=== PATIENT | male | born 1940 | race Caucasian/White ===

== ENCOUNTER 2019-02-27 07:27 | Outpatient (CLI) | payer MEDICARE, OTHER | END 2019-02-27 23:59 | disposition home or self-care (01) | LOC: CVU 07:27 | PROVIDERS: ATTEND Physician Assistant | DX: I70.213 Atherosclerosis of native arteries of extremities with intermittent claudication, bilateral legs (principal); I10 Essential (primary) hypertension; I25.10 Atherosclerotic heart disease of native coronary artery without angina pectoris; F17.210 Nicotine dependence, cigarettes, uncomplicated; I25.2 Old myocardial infarction; Z95.1 Presence of aortocoronary bypass graft | CPT/HCPCS: 93922; 93925 ==

== ENCOUNTER 2020-02-09 07:47 | Observation (INO) | payer MEDICARE ==
[~2020-02-09] VITALS: Ht 175.3 cm; Wt 79.4 kg
[2020-02-09] MEDS ORDERED: DIGO125T85 PO (08:55)
[2020-02-09] MEDS ORDERED: CARV6.252 PO (08:55)
[2020-02-09] MEDS ORDERED: FURO40TA6 PO (08:55)
[2020-02-09] MEDS ORDERED: ASPI81TA45 PO (08:55)
[2020-02-09] MEDS ORDERED: LOSA25TA25 PO (08:59)
[2020-02-09] MEDS ORDERED: POTA20TA14 PO (08:59)
[2020-02-09] MEDS ORDERED: SOTA160T PO (08:59)
[2020-02-09 09:05] VITALS: BP 108/69
[2020-02-09 09:09] LABS: BASOPHILS # (AUTO) 0.03 x10^3/uL (0-0.1); BASOPHILS % (AUTO) 0 % (0-1); EOSINOPHILS # (AUTO) 0.19 x10^3/uL (0-0.4); EOSINOPHILS % (AUTO) 2 % (1-7); LYMPHOCYTES # (AUTO) 1.27 x10^3/uL (1-3.4); LYMPHOCYTES % (AUTO) 11 % (22-44); MD NO; MEAN CORPUSCULAR HEMOGLOBIN 29.7 pg (27.5-34.5); MEAN CORPUSCULAR HGB CONC 33.2 g/dL (33.2-36.2); MEAN CORPUSCULAR VOLUME 89.5 fL (81-97); MONOCYTES # (AUTO) 0.72 x10^3/uL (0.2-0.8); MONOCYTES % (AUTO) 6 % (2-9); NEUTROPHILS # (AUTO) 9.01 x10^3/uL (1.8-6.8); NEUTROPHILS % (AUTO) 80 % (42-75); PLATELET COUNT 188 x10^3/uL (130-400); RED BLOOD COUNT 4.73 x10^6/uL (4.38-5.82); RED CELL DISTRIBUTION WIDTH 15.8 % (9.4-14.8)
[2020-02-09 09:16] LABS: ANION GAP 5 mmol/L (5-15); CALCIUM 8.7 mg/dL (8.5-10.1); CHLORIDE 103 mmol/L (98-107); CREATININE 1.07 mg/dL (0.7-1.3)
[2020-02-09] MEDS ORDERED: HYDROmorphone 1 MG/ML, 1ML INJ IVPush PRN (09:30)
[2020-02-09] MEDS ORDERED: OXYcodone 5 MG/5 ML ORAL.SOL UDC PO PRN (09:30)
[2020-02-09] MEDS ORDERED: hydrALAzine 20 MG/ML, 1ML IV PRN (09:30)
[2020-02-09] MEDS ORDERED: FENTANYL PF 100 MCG/2ML IV PRN (09:30)
[2020-02-09] MEDS ORDERED: ACETAMINOPHEN 325 MG TABLET PO PRN ×2 (09:30→12:30)
[2020-02-09] MEDS ORDERED: MEPERIDINE/PF 25MG/0.5ML IVPush PRN (09:30)
[2020-02-09] MEDS ORDERED: ONDANSETRON 2MG/ML, 2ML IVPush PRN (09:30)
[2020-02-09] MEDS ORDERED: EPHEDRINE 50 MG/ML, 1ML IVPush PRN (09:30)
[2020-02-09] MEDS ORDERED: PLEASE ENTER HEIGHT AND WEIGHT MC SCH (09:30)
[2020-02-09] MEDS ORDERED: LABETALOL 5MG/ML, 20ML IV PRN (09:30)
[2020-02-09] MEDS ORDERED: PROMETHAZINE 25 MG/ML, 1ML IVPush PRN (09:30)
[2020-02-09] MEDS ORDERED: FENTANYL PF 100 MCG/2ML ONE ×2 (09:46→11:14)
[2020-02-09] MEDS ORDERED: CEFAZOLIN PMX 1GM/50ML 50 ML IVPB ONE (10:00)
[2020-02-09] MEDS ORDERED: SODIUM CHLORIDE 0.9% 1,000 ML IV SCH (10:00)
[2020-02-09] MEDS ORDERED: LIDOCAINE 1%, 20ML ONE (10:35)
[2020-02-09] MEDS ORDERED: SUCCINYLCHOLINE 20 MG/ML, 10ML ONE (10:37)
[2020-02-09] MEDS ORDERED: PROPOFOL 10 MG/ML, 20ML ONE (10:37)
[2020-02-09] MEDS ORDERED: DEXAMETHASONE 4 MG/ML, 1ML ONE (10:37)
[2020-02-09] MEDS ORDERED: CEFAZOLIN 1,000 MG ONE (10:37)
[2020-02-09] MEDS ORDERED: ONDANSETRON 2MG/ML, 2ML ONE (10:37)
[2020-02-09] MEDS ORDERED: EPINEPHRINE 1 MG/ML, 1ML ONE (10:38)
[2020-02-09] MEDS ORDERED: HOLD MEDICATION MC PRN (12:30)
[2020-02-09 14:00] VITALS: BP 90/53
[2020-02-09] MEDS ORDERED: CARVEDILOL 3.125 MG TABLET PO SCH (16:00)
[2020-02-09 16:45] VITALS: BP 91/55
[2020-02-09] MEDS: CEFAZOLIN PMX 1GM/50ML 50 ML IVPB SCH (18:37)
[2020-02-09 19:51] VITALS: BP 95/53
[2020-02-09] MEDS: SOTALOL 80MG TABLET PO SCH (20:34)
[2020-02-09] MEDS: SODIUM CHLORIDE FLUSH 10ML SYR IVF SCH (20:36)
[2020-02-09] MEDS ORDERED: LOSARTAN 25MG TABLET PO SCH (21:00)
[2020-02-09] MEDS ORDERED: ASPIRIN 81 MG TABLET EC PO SCH (21:00)
[2020-02-09 21:24] VITALS: BP 122/70
[2020-02-09] MEDS ORDERED: LOSARTAN 25MG TABLET ONE (21:40)
[2020-02-09] MEDS ORDERED: CARVEDILOL 3.125 MG TABLET ONE (21:40)
[2020-02-09] MEDS: CARVEDILOL 3.125 MG TABLET PO SCH (21:43)
[2020-02-10] MEDS: CEFAZOLIN PMX 1GM/50ML 50 ML IVPB SCH (01:35)
[2020-02-10 01:38] VITALS: BP 95/59
[2020-02-10 07:58] VITALS: BP 121/75
[2020-02-10] MEDS: SOTALOL 80MG TABLET PO SCH (08:22)
[2020-02-10] MEDS: CARVEDILOL 3.125 MG TABLET PO SCH (08:22)
[2020-02-10] MEDS: SODIUM CHLORIDE FLUSH 10ML SYR IVF SCH (08:23)
[2020-02-10] MEDS ORDERED: DIGOXIN 0.125 MG TABLET PO SCH (09:00)
[2020-02-10] MEDS ORDERED: TAMSULOSIN 0.4 MG CAP.ER.24H PO ONE (09:00)
[2020-02-10] MEDS ORDERED: LOSARTAN 25MG TABLET PO SCH (21:00)
[2020-02-11] MEDS ORDERED: FUROSEMIDE 20 MG TABLET PO SCH (09:00)
[2020-02-11] MEDS ORDERED: POTASSIUM CHLORIDE 10 MEQ TABLET.ER PO SCH (09:00)
== END 2020-02-10 12:59 | disposition home or self-care (01) ==
LOC: CACL 07:47 → ORIP 12:25 → 5SO 13:29 → DCLOUNGE 02-10 12:49
PROVIDERS: ADMIT Internal Medicine Cardiovascular Disease; ATTEND Internal Medicine Cardiovascular Disease
DX: I25.5 Ischemic cardiomyopathy (principal); I44.7 Left bundle-branch block, unspecified; I50.9 Heart failure, unspecified; I25.10 Atherosclerotic heart disease of native coronary artery without angina pectoris; I47.2 Ventricular tachycardia; J44.9 Chronic obstructive pulmonary disease, unspecified; Z79.82 Long term (current) use of aspirin; Z79.899 Other long term (current) drug therapy; Z95.810 Presence of automatic (implantable) cardiac defibrillator
CPT/HCPCS: 33225; 33264; 36415; 71045; 71046; 80048; 85025; 96365; 96366; C1769; C1882; C1887; C1900; G0378; J0171; J0330; J0690; J1100; J2405; J2704; J3010; J3490; Q9967

== ENCOUNTER 2020-08-10 07:59 | Day surgery (SDC) | payer MEDICARE ==
[2020-08-09 14:31] LABS: ALANINE AMINOTRANSFERASE 36 U/L (12-78); ALBUMIN 3.6 g/dL (3.4-5.0); ANION GAP 5 mmol/L (5-15); CALCIUM 8.7 mg/dL (8.5-10.1); CHLORIDE 102 mmol/L (98-107); CREATININE 1.19 mg/dL (0.7-1.3)
[2020-08-09 14:33] LABS: ALKALINE PHOSPHATASE 65 U/L (45-117); BILIRUBIN,TOTAL 0.5 mg/dL (0.2-1.0); TOTAL PROTEIN 7.5 g/dL (6.4-8.2)
[~2020-08-10] VITALS: Ht 175.3 cm; Wt 82.6 kg
[~2020-08-10 07:59] MED LIST: ASPI81TA45 PO; CARV6.252 PO; DIGO125T85 PO; FURO40TA6 PO; LOSA25TA25 PO; POTA20TA14 PO; SOTA160T PO
[2020-08-10] MEDS ORDERED: CHLORHEXIDINE 15 ML UDC MM ONE (08:30)
[2020-08-10] MEDS ORDERED: LACTATED RINGERS 1,000 ML IV SCH (08:30)
[2020-08-10 08:41] VITALS: BP 110/72
[2020-08-10] MEDS ORDERED: BUPIVACAINE/PF 0.5% ONE (09:26)
[2020-08-10] MEDS ORDERED: EPINEPHRINE 1 MG/ML, 1ML ONE (09:26)
== END 2020-08-10 10:40 | disposition home or self-care (01) ==
LOC: OUT 07:59
PROVIDERS: ATTEND Surgery
DX: K40.90 Unilateral inguinal hernia, without obstruction or gangrene, not specified as recurrent (principal); Z53.8 Procedure and treatment not carried out for other reasons; Z20.828 Contact with and (suspected) exposure to other viral communicable diseases; Z79.899 Other long term (current) drug therapy
CPT/HCPCS: 36415; 80053; 87635; 93005; J0171; J7120